=== PATIENT | male | born 1980 | race Caucasian/White ===

== ENCOUNTER 2021-03-05 14:38 | Emergency (ER) | payer OTHER ==
[~2021-03-05 14:38] MED LIST: BACTRIM DS TAB1 EACH PO; IBUPROFEN800 MG PO; KEFLEX250 MG PO; KEFLEX500 MG PO; ONDANSETRON ODT4 MG SL
[2021-03-05] MEDS ORDERED: NAPROXEN500 MG PO (15:13)
== END 2021-03-05 16:00 | disposition home or self-care (01) ==
LOC: FER 14:38
DX: S63.501A Unspecified sprain of right wrist, initial encounter (principal); X58.XXXA Exposure to other specified factors, initial encounter; Y92.69 Other specified industrial and construction area as the place of occurrence of the external cause; Y99.0 Civilian activity done for income or pay
CPT/HCPCS: 73110